=== PATIENT | female | born 1955 | race Caucasian/White ===

== ENCOUNTER 2024-07-15 21:52 | Observation (INO) | payer OTHER, SELFPAY ==
[2024-07-15 17:29] LABS: % Basophils 0.5 % (0-2); % Eosinophils 1.3 % (0-6); % Immature Granulocytes 0.5 % (0-0.5); % Lymphocytes 11.4 % (20.5-51.1); % Monocytes 4.8 % (1.7-9.3); % Neutrophils 81.5 % (42.2-75.2); Absolute Eosinophils 0.1 10^3/uL (0-0.7); Absolute Monocytes 0.4 10^3/uL (0.1-0.6); Absolute Neutrophils 7.1 10^3/uL (1.4-6.5); Hemoglobin 15.2 g/dL (12.0-16.0); Mean Corp Hgb Conc. 32.3 g/dL (33.0-37.0); Mean Corpuscular Hgb 30.3 pg (27.0-31.0); Mean Corpuscular Volume 93.6 fL (81.0-99.0); Mean Platelet Volume 10.1 fL (7.4-10.4); Nucleated Red Blood Cells % 0 %; Platelet Count 182 10^3/uL (130-400); Red Blood Cell Count 5.02 10^6/uL (4.20-5.40); White Blood Cell Count 8.7 10^3/uL (4.8-10.8)
[2024-07-15 17:50] LABS: ALT (SGPT) 14 U/L (0-35); AST (SGOT) 18 U/L (14-36); Albumin 4.1 g/dl (3.5-5.0); Alkaline Phosphatase 114 U/L (38-126); Blood Urea Nitrogen 16 mg/dl (7-17); Calcium 9.4 mg/dl (8.4-10.2); Carbon Dioxide 23 mmol/L (22-30); Chloride 106 mmol/L (98-107); Glucose 135 mg/dl (70-99); Potassium 3.9 mmol/L (3.5-5.1); Sodium 138 mmol/L (135-145); Total Bilirubin 0.7 mg/dl (0.2-1.3); Total Protein 6.9 g/dl (6.3-8.2)
[2024-07-15 17:55] LABS: Troponin I < 0.012 ng/ml
[2024-07-15 18:20] LABS: Lipase 47 U/L (23-300)
[2024-07-15 19:04] VITALS: BP 143/65
[2024-07-15 19:27] VITALS: BMI 46.4
--- NOTE | 2024-07-15 19:41 | ED.GENMED ---
History of Present Illness
General
Chief Complaint: Abdominal Pain
Source: patient
Exam Limitations: none
Time Seen by Provider: 07/15/24 19:32
Nursing documentation reviewed up to this point in time: agreed with
History of Present Illness
History of Present Illness:
Patient without significant past medical history, presents to ED secondary to sudden onset of upper abdominal pain associated with vomiting episodes, starting this morning. Patient does have history of gallstones, found incidentally during
evaluation 5 years ago. Denies fever or chills. Denies recent illness. Denies trauma. Denies difficulty with urination. Abdominal pain described as sharp, nonradiating, without any alleviating or exacerbating factors.
Past History
Past History
ED Past Surgical History: Gynecological, Orthopedic and Other (Gastric bypass)
Review of Systems
Review of Systems
Allergies reviewed?: Yes
All Other Systems: ROS reviewed and negative except as documented in HPI and ROS
Constitutional: Reports no symptoms; Denies fever
Respiratory: Reports no symptoms
Cardiac: Reports no symptoms
ABD/GI: Reports abdominal pain, nausea and vomiting
Musculoskeletal: Reports no symptoms
Skin: Reports no symptoms
Neurological: Reports no symptoms
Phy Exam
Physical Exam
Physical Exam:
Physical Exam
General: moderate painful distress, not acutely ill. afebrile
Head: nc/at. eomi
Neck: supple. normal range of motion.
Abdomen: normal bowel sounds. no distention. moderate RUQ tenderness to palpation
Neuro: alert and oriented x 3. no focal neurological deficits
Skin: no rash
Psychiatric: well kept. interactive and cooperative
Extremities: no edema. no calf tenderness.
Course
Orders/Labs/Results
Orders:
Orders
07/15/24 16:53
Electrocardiogram (*1) Urgent
Reason for Study: Vertigo / Dizzy
EKG- Treatment ONCE
07/15/24 17:04
US Abdomen Complete/Upper Urgent
Comment:
Reason For Exam: RUQ pain
07/15/24 17:21
Complete Blood Count/With Diff Urgent
Comprehensive Metabolic Panel Urgent
Lipase Urgent
Comment: ADD ON
Troponin I Urgent
07/15/24 18:04
Add On- LAB Urgent
Tests Added?: Lipase
07/15/24 19:38
HYDROmorphone [Dilaudid] 0.5 mg IV NOW STA
07/15/24 19:39
0.9% Sodium Chloride 500 ml [Nss] 500 ml IV BOLUS
Ondansetron Injectable [Zofran] 4 mg IV NOW STA
07/15/24 19:45
Piperacillin/Tazo 3.375 Gram [Zosyn] 3.375 gram in 50 ml IV NOW
07/15/24 20:18
HYDROmorphone [Dilaudid] 0.5 mg IV NOW STA
07/15/24 21:24
Admit/Transfer Patient As Directed
Co-Sign Provider:
Level of Care: Observation services
Assign to:: Telemetry
Physician / Group: Surgery
Diagnosis: Acute Choleycystitis
Reason for Telemetry: Arrhythmia
Date to Stop Telemetry: 07/18/24
Time to Stop Telemetry: 11:00
07/15/24 21:25
PRN Pain Medication Management As Directed
May give lesser potent ordered pain med per pt: Yes
preference::
Protocol:: Medication orders for pain may be administered in a
manner that supports deferring to patient preference
when the pt is:
- Requesting an ordered lesser potent pain medication.
Least to most potent pain medications are defined
as: acetaminophen < NSAID < tramadol < opioids
(morphine, oxycodone, hydromorphone).
- Requesting a lesser dose of the same medication IF
ORDERED.
- Requesting a less intrusive route of administration
if both routes are prescribed by the provider (PO <
IV).
07/15/24 21:30
Code Status As Directed
Resuscitation Status: Full Code
07/15/24 22:00
Flush (0.9% Sodium Chloride) [Flush (Nss)] See Dose Instructions IV PER PROTOCOL
07/16/24 02:00
Piperacillin/Tazo 3.375 Gram [Zosyn] 3.375 gram in 50 ml IV Q6H
07/18/24 11:00
DC Protocol for Telemetry ONCE
Abnormal Lab Results
07/15/24
17:21
MCHC 32.3 L g/dL
(33.0-37.0)
Absolute Neuts (auto) 7.1 H 10^3/uL
(1.4-6.5)
Absolute Lymphs (auto) 1.0 L 10^3/uL
(1.2-3.4)
Neutrophils % 81.5 H %
(42.2-75.2)
Lymphocytes % 11.4 L %
(20.5-51.1)
Creatinine 1.2 H mg/dL
(0.6-1.0)
Glucose 135 H mg/dl
(70-99)
07/15/24 17:21
07/15/24 17:21
Vital Signs
Initial and Last Documented VS:
Initial Vital Signs
Temp Pulse Resp Pulse Ox
98.1 F 60 22 99
07/15/24 16:57 07/15/24 16:57 07/15/24 16:57 07/15/24 16:57
Last Documented Vital Signs
Temp Pulse Resp BP Pulse Ox
98.1 F 63 14 166/90 98
07/15/24 16:57 07/15/24 23:49 07/15/24 23:49 07/15/24 23:00 07/15/24 23:30
MDM/Problems Addressed
MDM/Problems Addressed:
History, exam, and abdominal ultrasound consistent with acute cholecystitis.
Discussed with on-call surgeon, Dr. Kim. Will admit patient for likely OR tomorrow. Requests Zosyn in ED.
*Critical Care Note
Total Time (30-74mins, 75-104mins- exclusive of procedures): Not Applicable
ED Attending Note
-
Portions of this chart may have been created with voice recognition software.� Occasional wrong word or��sound alike� substitutions may have occurred due to the inherent limitations of voice recognition software.
Discharge Plan
Departure
Patient Disposition: Admit
Date of Disposition: 07/15/24
Time of Disposition: 19:45
Presentation/result/management discussed w/ accepting MD/DO:
Discharge Problem:
Acute cholecystitis
Interventions
Interventions:
*Risk Screen - Suicide Last Done: 07/15/24 16:57
*General Assessment Last Done: 07/15/24 16:57
*Neglect/Abuse Screening Last Done: 07/15/24 16:57
ED- Fall Risk Assessment Last Done: 07/15/24 19:27
*ED COVID-19 Vaccine History Last Done: 07/15/24 19:27
SX-Whbvfg-Kqyynlplof Assessment Last Done: 07/15/24 19:27
ED- Cardiac Assessment Last Done: 07/15/24 19:27
ED- Neurological Assessment Last Done: 07/15/24 19:27
ED Swallowing Screen Last Done: 07/15/24 20:07
[2024-07-15] MEDS: ZOFRAN 4 MG IV (19:44)
[2024-07-15] MEDS: DILAUDID 0.5 MG IV ×3 (19:44→22:24)
[2024-07-15] MEDS: NSS 500 IV (19:47)
[2024-07-15 20:00] VITALS: BP 140/61
[2024-07-15] MEDS: ZOSYN 50 IV (20:01)
--- NOTE | 2024-07-15 20:09 | HPS.HSE ---
Addendum entered and electronically signed by Craig Kim MD 07/16/24 07:59:
I saw and examined the patient independently.
The Chemical Preparer's note was reviewed and I agree with the note, assessment and plan except where noted below.
Comment: This is a 69-year-old female with morbid obesity (BMI 44) status post open gastric bypass, hysterectomy who presents with a 1 day history of right upper quadrant pain. Found to have acute cholecystitis on ultrasound imaging. Vital stable.
Blood work unremarkable. Tender to palpation in the right upper quadrant with positive sonographic Morris sign.
Will plan for a laparoscopic, possible open cholecystectomy with cholangiogram.
N.p.o., IV fluids, IV Zosyn
Risks/Benefits/Alternatives, expected postoperative course and possible complications (bleeding, infection, injury to surrounding structures, acute/chronic pain) discussed at length. Patient wishes to proceed with surgery. All questions answered.
Consent obtained.
I spent 75 minutes in total for the care of this patient today including direct patient care and counseling, reviewing labs, imaging, coordination of care, as well as documentation.
Original Note:
Family Physician
-
Family Physician: Merle Rogers MD
Chief Complaint
-
Abdominal pain
History of Present Illness
Patient is a 69 year old female with no significant past medical history, presents to the emergency department for sudden onset of upper abdominal pain with vomiting that started around 9 am this morning. Abdominal pain described as sharp,
nonradiating, without any alleviating or exacerbating factors. Patient has a history of gallstones, found incidentally during examination 5 years ago. Denies fever or chills. Denies recent illness. Denies trauma. Denies difficulty with
urination.
In the emergency department, vital signs stable, afebrile. EKG showed NSR, HR 60. Labs showed no leukocytosis, WBC 8.7. Creatinine elevated at 1.2.
Abdominal U/S showed sonographic findings consistent with acute cholecystitis. No bile duct dilatation. Findings suggest medical renal disease. Left renal 6 mm nonobstructing calculus.Fatty infiltration of liver. Results sent by [place] text to
[facility] at 7:30 PM on 07/15/2024.
Case discussed with on-call surgeon, Dr. Kim, who will accept patient for admission. Plan for possible OR tomorrow.
Medical History
Past Medical History
Past Medical History: Reports Arrhythmia (benign PAC's), Renal Failure (Stage 3a CKD), Psychiatric (Anxiety, psychophysiological insomnia, PTSD) and Other (b/l subacute pulmonary emboli, 09/2019 (Post COVID 08/2019), )
Past Surgical History: Reports Gynocological (Hysterectomy, 1997), Orthopedic (Right total hip replacement, 01/18/2023) and Urological ( )
Social History
Tobacco: Non-smoker
Alcohol: Occasional
Drug: None
Personal:
Living: With Family
Employment: Retired
Family History
Family History: Not pertinent
Allergies / Home Medications
Allergies reflects when Allergies were last updated in [employer].
Home Medications with original date entered in [employer]
Allergy/Medication List:
Patient Allergies
Allergy/AdvReac Type Severity Reaction Status Date / Time
No Known Allergies Allergy Verified 07/15/24 17:01
Home Medications
�Medication �Instructions �Recorded
cyclosporine 0.05 % eye drops in a 1 drp BOTH EYES Q12H 07/15/24
dropperette (Restasis)
duloxetine 60 mg capsule,delayed 120 mg PO HS 07/15/24
release
gabapentin 400 mg capsule 800 mg PO HS 07/15/24
quetiapine 25 mg tablet (Seroquel) 25 mg PO HS 07/15/24
trazodone 100 mg tablet 200 mg PO HS 07/15/24
Review of Systems
-
History Source: Patient
A 12 point ROS was completed and negative except as noted: Yes
Constitutional: Reports See HPI
EENT: Reports No Symptoms
Respiratory: Reports No Symptoms
Cardiac: Reports No Symptoms
Abdomen/GI: Reports Abdominal Pain (upper abdominal pain), Nausea and Vomiting
: Reports No Symptoms
Musculoskeletal: Reports No Symptoms
Skin: Reports No Symptoms
Neurological: Reports Dizzy
Endocrine: Reports No Symptoms
Psych: Reports Anxiety
Physical Exam
Vital Signs
Vital Signs
Temp Pulse Resp BP Pulse Ox
98.1 F 62 15 140/61 98
07/15/24 16:57 07/15/24 20:00 07/15/24 20:00 07/15/24 20:00 07/15/24 20:00
Physical Exam
General: Appears in Distress, Pain and Poor Appetite
HEENT: NormoCephalic and Moist mucous membranes
Respiratory: Clear
Cardiac: S1/S2 and Regular Rhythm
GI: Non Distended and Tender (right upper quadrant)
Skin: Warm and Dry
Neuro: AO x 3
Psych: Intact Judgment/Insight and Anxious
Laboratory Results
-
07/15/24 17:21
07/15/24 17:21
Laboratory Results
Total Bilirubin 0.7 mg/dl (0.2-1.3) 07/15/24 17:21
AST 18 U/L (14-36) 07/15/24 17:21
ALT 14 U/L (0-35) 07/15/24 17:21
Alkaline Phosphatase 114 U/L (38-126) 07/15/24 17:21
Troponin I < 0.012 ng/ml 07/15/24 17:21
Lipase 47 U/L (23-300) 07/15/24 17:21
Data Reviewed
-
Ultrasound: Report Reviewed by me
Lab Data: Labs Reviewed by me
Impression/Plan
-
IMPRESSION:
Patient is a 69 year old female with past medical history benign PAC's, JAY, hx of pulmonary emboli post COVID in 09/2019 (completed treatment w/Eliquis for 1 yr), stage 3a CKD, Hx of gastric bypass, anxiety, PTSD, presents to the emergency
department for sudden onset of upper abdominal pain with vomiting that started around 9 am this morning. Abdominal U/S showed acute cholecystitis.
PLAN:
Acute cholecystitis
-Admitted to general surgery, Dr. Craig Kim accepted patient
-NPO, IV fluids ordered
-Possible OR tomorrow
-Antibiotics continued, Zosyn 3.375 IV Q6H
-Ordered pain medication and antiemetics
Insomnia/Anxiety
-Home medications to be continued per surgery
DVT Prophylaxis: SCD's/Lovenox post op
Code status: Full code
[2024-07-15 21:00] VITALS: BP 126/70
[2024-07-15] MEDS: FLUSH (NSS) 1 FLUSH IV (21:53)
[2024-07-15 22:20] VITALS: BP 156/74
[2024-07-15 23:00] VITALS: BP 166/90
[2024-07-16] VITALS (18 sets, daily range): BP systolic 10–156; BP diastolic 51–121; BMI 44.7
[2024-07-16] MEDS: DILAUDID 1 MG IV ×2 (01:54→05:28)
[2024-07-16] MEDS: ZOFRAN 4 MG IV (02:00)
[2024-07-16] MEDS: NSS 1000 IV ×2 (02:05→15:00)
[2024-07-16] MEDS: ZOSYN 50 IV ×3 (02:05→19:50)
[2024-07-16] MEDS: DILAUDID 0.5 MG IV ×3 (03:29→23:36)
[2024-07-16 06:57] LABS: Hematocrit 44.3 % (37.0-47.0); Hemoglobin 14.8 g/dL (12.0-16.0); Mean Corp Hgb Conc. 33.4 g/dL (33.0-37.0); Mean Corpuscular Hgb 29.8 pg (27.0-31.0); Mean Corpuscular Volume 89.3 fL (81.0-99.0); Mean Platelet Volume 9.9 fL (7.4-10.4); Platelet Count 171 10^3/uL (130-400); Red Blood Cell Count 4.96 10^6/uL (4.20-5.40); Red Cell Dist. Width 13.9 % (11.5-14.5); White Blood Cell Count 9.8 10^3/uL (4.8-10.8)
[2024-07-16 07:42] LABS: Blood Urea Nitrogen 13 mg/dl (7-17); Calcium 8.7 mg/dl (8.4-10.2); Carbon Dioxide 19 mmol/L (22-30); Chloride 106 mmol/L (98-107); Estimated Creatinine Clearance 57 ml/min; Glucose 129 mg/dl (70-99); Potassium 4.5 mmol/L (3.5-5.1); Sodium 137 mmol/L (135-145); eGFR 54.39
--- NOTE | 2024-07-16 07:44 | PTCARENOTE ---
Report received from manager night at 715 OR called at 730 for patient . Pre op work chest list completed . temp > 101 Report given to PACU Nurse. Pt sent to OR. PT going to 2 S after and all belongings packed and sent with her
--- NOTE | 2024-07-16 07:59 | W.SUR.PREOP ---
Pre-Operative Surgical Note
-
I have examined this patient prior to the performance of the scheduled procedure.
The patient's condition is unchanged from the time of the current History and
Physical and the patient is able to undergo the scheduled procedure.
[2024-07-16] MEDS: ZOSYN IV (09:02)
--- NOTE | 2024-07-16 11:28 | W.IMMPOSTOP ---
Surgical Immed Post Op Note
-
Primary Surgeon: Craig Kim MD
Assisting Surgeon: Xander Caldwell MD (PGY 1)
Pre-op Diagnosis: Acute cholecystitis
Post-op Diagnosis: Acute cholecystitis, intra-abdominal adhesions
Procedure Performed:
1. Laparoscopic lysis of adhesions (100 minutes)
2. Laparoscopic cholecystectomy with cholangiogram
Anesthesia Type: General
Specimen / Cultures: Gallbladder and contents
Estimated Blood Loss: 101 cc
Complications: None
Operative Findings: Left subcostal Veress entry requiring a single pass followed by a chest of midline right upper quadrant Optiview trocar entry. No injury on entry noted. We encountered dense adhesions across her right subcostal margin as
expected. 2 more additional 5 mm trocars were placed in the right lower quadrant and left upper quadrant. We performed a laparoscopic lysis of adhesions taking down the transverse colon and omentum from the right lateral sidewall all the way to
the midline and falciform. There were also dense adhesions over the gallbladder and the duodenum to the base of the gallbladder that were all lysed with electrocautery and sharp dissection respectively. This took roughly 100 minutes. The
gallbladder was notably distended and gangrenous. A top-down cholecystectomy was performed without violation of the gallbladder. We were able to get to the infundibulum but dense adhesions prevented us from going any further. The gallbladder was
divided at this level and opened. The gallbladder was placed in a specimen bag and removed. There were 4 additional black gallstones identified in the cystic duct which were removed. There was free backflow of bile. We did attempt cholangiogram
but were unable to significantly cannulate the duct enough to get a good image without leaking. A small cuff of the stump was dissected and ligated with a 0 PDS Endoloop. A 19 Slovenian round Tad drain was introduced through the right lateralmost
port and secured to the skin with a 2-0 nylon suture and laid across our surgical field. The field was also infiltrated with Surgiflo to assist with any hemostasis though there was no active bleeding at the end of the procedure. The 12 mm
epigastric port was closed with 0 PDS suture using a Burt Echevarria device and the remaining 5 mm ports were pulled under direct visualization.
POST OP PLAN:
Imaging: None
Labs: Will check CBC and CMP
Diet: Clears
Analgesia: Tylenol 650mg q6 Alexandr, Bria 5mg q6 PRN, Dilaudid 0.5mg q2h PRN
Neuro/vascular checks: q4h
AC/AP: Hold Therapeutic AC, DVT PPx
Activity: Ad Jigna
Wound/Incisions/Drains: ASHUTOSH to bulb suction
Abx: Will continue antibiotics x 4 days
Dispo: RNF
--- NOTE | 2024-07-16 13:04 | PTCARENOTE ---
pt received to 2S room 2117 via bed from PACU at 1250. pt oriented to room, call joy and post op plan of care. pt drowsy but easily arousable. at bedside. telemetry placed and reading SR in 80's. tolerating ice chips. denies pain or
nausea. care ongoing.
--- NOTE | 2024-07-16 15:27 | OR.RPT ---
Operative Report
Operative Report
Patient Name: Bhavani Deal
: 1955
Date of Operation: 07/16/2024
Preoperative Diagnosis: Acute cholecystitis
Postoperative Diagnosis: Acute cholecystitis, intra-abdominal adhesions
Procedure(s):
1. Laparoscopic lysis of adhesions (100 minutes)
2. Laparoscopic Cholecystectomy with Cholangiogram
Surgeon(s):
Dr. Kim
[place] Winder(s):
Xander Caldwell MD (PGY 1)
Anesthesia: General
Estimated Blood Loss: 101 cc
Urine Output: 500 cc at the end of the case
Drains/Lines/Implants: 19 Montenegrin round Tad drain in the gallbladder fossa. 18 Montenegrin Kumar placed in the case.
Specimens:
1. Gallbladder and contents
HPI/Surgical Indications:
This is a 69-year-old female with a history of an open Pari-en-Y gastric bypass who presents with a 1 day history of abdominal pain, but known postprandial pain for some time. She is known about gallstones for at least 5 years. Exam, labs and
imaging are consistent with acute cholecystitis. Risks/Benefits/Alternatives were discussed at length, and the patient agreed to proceed with surgery.
Operative Findings: Left subcostal Veress entry requiring a single pass followed by a chest of midline right upper quadrant Optiview trocar entry. No injury on entry noted. We encountered dense adhesions across her right subcostal margin as
expected. 2 more additional 5 mm trocars were placed in the right lower quadrant and left upper quadrant. We performed a laparoscopic lysis of adhesions taking down the transverse colon and omentum from the right lateral sidewall all the way to
the midline and falciform. There were also dense adhesions over the gallbladder and the duodenum to the base of the gallbladder that were all lysed with electrocautery and sharp dissection respectively. This took roughly 100 minutes. The
gallbladder was notably distended and gangrenous. A top-down cholecystectomy was performed without violation of the gallbladder. We were able to get to the infundibulum but dense adhesions prevented us from going any further. The gallbladder was
divided at this level and opened. The gallbladder was placed in a specimen bag and removed. There were 4 additional black gallstones identified in the cystic duct which were removed. There was free backflow of bile. We did attempt cholangiogram
but were unable to significantly cannulate the duct enough to get a good image without leaking. A small cuff of the stump was dissected and ligated with a 0 PDS Endoloop. A 19 Montenegrin round Tad drain was introduced through the right lateralmost
port and secured to the skin with a 2-0 nylon suture and laid across our surgical field. The field was also infiltrated with Surgiflo to assist with any hemostasis though there was no active bleeding at the end of the procedure. The 12 mm
epigastric port was closed with 0 PDS suture using a Burt Echevarria device and the remaining 5 mm ports were pulled under direct visualization.
Procedure Description:
The patient was brought to the Operating Room and placed in the supine position with the arms out. Following uneventful induction of general endotracheal anesthesia, the abdomen was prepped and draped in the usual sterile fashion. A timeout was
performed confirming the procedure, consent, and that IV antibiotics were infused and sequential compression devices were confirmed to be on. The abdomen was entered using a left subcostal Veress technique which required a single pass followed by a
5 mm right upper quadrant Optiview trocar. Pneumoperitoneum to 15 mmHg pressure was obtained without difficulty and we confirmed that no injury had occurred during our entry. We immediately encountered dense adhesions from the transverse colon
omentum up to the anterior abdominal wall spanning the length of her subcostal incision as expected. Two 5 mm ports were placed in the right and left quadrants and we began a tedious lysis of adhesions. This took roughly 100 minutes but we were
able to completely dissect the transverse colon down without any injury to the underlying viscera. The gallbladder was identified and noted to be gangrenous and very distended. 2 more 5 mm ports were placed in the right upper quadrant in the
standard position as well as a 12 mm port in the epigastrium. The patient was positioned in reverse Trendelenberg and rotated with the right side up slightly. The gallbladder was emptied using a decompressing needle through the fundus of the
gallbladder with evacuation of hydrops before A locking grasping forceps was placed on the fundus of the gallbladder where it was then retracted cephalad and to the right. Using appropriate grasping instruments, the peritoneum overlying the triangle
of Calot was incised and extended superiorly on both the anterior and posterior gallbladder mahajan. We encountered bleeding which we controlled with our laparoscopic bipolar energy device. As the tissues here were quite friable we elected to do a
top-down cholecystectomy which we were able to do without violating the gallbladder fossa. Once we got to the infundibulum progress was limited due to the inflammation medially and inferiorly as duodenum was somewhat adherent in this area. At this
point I elected to transect the gallbladder at the level of the cystic duct junction to the infundibulum. The gallbladder was then placed in an Endo Catch bag and removed. At this point all bleeding had stopped and we were able to better visualize
the cystic duct stump. Four additional black gallstones were removed, the latter 2 had to be milked out of the duct. This was followed by fairly free backflow of bile. Despite having normal preoperative LFTs, given her bypass anatomy we attempted
cholangiogram and passed cholangiocatheter into the duct and clamped it to the edge of the stump with Mclean clamp. Unfortunately we were not able to thread the catheter very far and there was significant spilling on x-ray so the cholangiogram was
aborted. I was able to get a little bit more length on the cystic duct stump and using a 0 PDS Endoloop ligated. There was no bleeding at this point however to ensure hemostasis the surgical field was sprayed with Floseal and then a 19 Montenegrin
round Tad drain was introduced to the right lateralmost port and secured at the skin with a 2-0 nylon stitch. There was some spillage of bile during this case but all extracted stones were removed. The gallbladder bed was inspected and excellent
hemostasis was obtained. The abdomen was again irrigated and excellent hemostasis was assured. All remaining trocars were then removed and the pneumoperitoneum was evacuated. The 12 mm trocar site was closed using 0 PDS suture. All trocar sites
were closed at the skin level using 4-0 Monocryl followed by Dermabond. Overall, the patient tolerated the procedure well and was taken to the Recovery Room postoperatively in stable condition.
I was the attending physician and performed the procedure with assistance from the resident above. I was present for all portions of the case, excluding skin closure.
Craig Kim MD
--- NOTE | 2024-07-16 17:29 | PTCARENOTE ---
pt requesting to get out of bed. much more awake and alert. assisted to reclining chair. pt immediately asking to have Kumar catheter removed. catheter removed at 1725. 300 ml yellow urine emptied from drainage bag. pt belching, drinking
water and ordered a clear liquid tray. care ongoing.
[2024-07-16] MEDS: LOVENOX 40 MG SC (19:50)
[2024-07-16] MEDS: TYLENOL 650 MG PO (19:51)
[2024-07-17] MEDS: ZOSYN 50 IV (02:52)
[2024-07-17 02:58] VITALS: BP 115/60
[2024-07-17] MEDS: NSS 1000 IV (03:33)
[2024-07-17] MEDS: DILAUDID 1 MG IV ×2 (03:33→05:53)
[2024-07-17 07:16] VITALS: BP 104/51
--- NOTE | 2024-07-17 08:10 | W.PN.GS2 ---
Addendum entered and electronically signed by Craig Kim MD 07/17/24 13:17:
MRCP negative. Will discharge the patient home today with drain with plan for close follow-up in the office.
Original Note:
Today's Communication / Plan
-
Will advance to regular diet
Stop IV fluids, antibiotics
Mildly elevated serum creatinine we will hold NSAIDs. Tylenol, tramadol and Dilaudid as needed.
Will obtain an MRI/MRCP to ensure no residual stone disease in the biliary ducts.
Assessment / Plan
-
This is a 69-year-old female with a history of an open Pari-en-Y gastric bypass who presents with a 1 day history of right upper quadrant abdominal pain found to have acute cholecystitis. Postoperative day 1 from a laparoscopic lysis of adhesions,
cholecystectomy with incomplete cholangiogram. Doing well, expected postoperative course.
Will advance to regular diet
Stop IV fluids, antibiotics
Mildly elevated serum creatinine we will hold NSAIDs. Tylenol, tramadol and Dilaudid as needed.
Will obtain an MRI/MRCP to ensure no residual stone disease in the biliary ducts.
Anticipate discharge home later today with the drain versus tomorrow pending clinical course.
Time Spent
Total Time Spent with Patient (in minutes): 20
Subjective Data
-
Date of Service: July 17, 2024
Interval Events:
No acute events overnight. Slept well. Pain Controlled. Denies Nausea/Vomiting, -bowel function. Tolerating diet.
Objective Data
-
Intake and Output
07/16/24 07/17/24 07/18/24
06:59 06:59 06:59
Intake Total 1590 / 1590
Output Total 1400 / 1400
Balance 190 / 190
Intake:
Oral fluids 540 / 540
IV fluids (Total) 900 / 900
normosol 75 / 75
IV piggybacks 150 / 150
Output:
Drain Output (Total) 75 / 75
Right Abdomen 75 / 75
Urine, Wood 1125 / 1125
Urine, Voided 200 / 200
Other:
Number of approximated SMALL 1
amounts of urine
How many times incontinent 1
SMALL amount urine
Vital Signs
Temp Pulse Resp BP Pulse Ox
97.5 F 79 16 104/51 91
07/17/24 07:16 07/17/24 07:16 07/17/24 07:16 07/17/24 07:16 07/17/24 07:16
Calcium 8.7 mg/dl (8.4-10.2) 07/16/24 06:44
Total Bilirubin 0.7 mg/dl (0.2-1.3) 07/15/24 17:21
AST 18 U/L (14-36) 07/15/24 17:21
ALT 14 U/L (0-35) 07/15/24 17:21
Alkaline Phosphatase 114 U/L (38-126) 07/15/24 17:21
Total Protein 6.9 g/dl (6.3-8.2) 07/15/24 17:21
Albumin 4.1 g/dl (3.5-5.0) 07/15/24 17:21
Physical Exam
-
GENERAL/NEURO: Awake, Alert, no distress
CHEST: Unlabored breathing on RA
ABDOMEN: Soft, Non-Tender, Non-Distended, ASHUTOSH serosanguineous. Incisions clean dry and intact.
Patient has a wood catheter: No
Patient has a central line: No
[2024-07-17] MEDS: ZOSYN IV (08:16)
[2024-07-17] MEDS: LOVENOX 40 MG SC (08:18)
[2024-07-17 09:34] LABS: % Basophils 0.3 % (0-2); % Eosinophils 0.2 % (0-6); % Immature Granulocytes 0.6 % (0-0.5); % Lymphocytes 8.9 % (20.5-51.1); % Monocytes 5.2 % (1.7-9.3); % Neutrophils 84.8 % (42.2-75.2); Absolute Immature Granulocytes 0.1 10^3/uL (0-0.05); Absolute Lymphocytes 0.9 10^3/uL (1.2-3.4); Absolute Monocytes 0.5 10^3/uL (0.1-0.6); Absolute Neutrophils 8.7 10^3/uL (1.4-6.5); Hematocrit 39.3 % (37.0-47.0); Hemoglobin 12.8 g/dL (12.0-16.0); Mean Corp Hgb Conc. 32.6 g/dL (33.0-37.0); Mean Corpuscular Hgb 30.2 pg (27.0-31.0); Mean Corpuscular Volume 92.7 fL (81.0-99.0); Mean Platelet Volume 10.3 fL (7.4-10.4); Nucleated Red Blood Cells % 0 %; Platelet Count 167 10^3/uL (130-400); Red Blood Cell Count 4.24 10^6/uL (4.20-5.40); Red Cell Dist. Width 14.1 % (11.5-14.5); White Blood Cell Count 10.2 10^3/uL (4.8-10.8)
[2024-07-17 10:16] LABS: ALT (SGPT) 31 U/L (0-35); AST (SGOT) 30 U/L (14-36); Alkaline Phosphatase 93 U/L (38-126); Blood Urea Nitrogen 14 mg/dl (7-17); Calcium 8.2 mg/dl (8.4-10.2); Carbon Dioxide 26 mmol/L (22-30); Chloride 104 mmol/L (98-107); Estimated Creatinine Clearance 62 ml/min; Glucose 104 mg/dl (70-99); Potassium 4.2 mmol/L (3.5-5.1); Sodium 136 mmol/L (135-145); Total Bilirubin 0.9 mg/dl (0.2-1.3); Total Protein 5.6 g/dl (6.3-8.2); eGFR > 60.00
[2024-07-17] MEDS: ULTRAM 25 MG PO (10:22)
[2024-07-17 11:07] VITALS: BP 147/75
--- NOTE | 2024-07-17 11:24 | CM ---
Reviewed the chart notes and spoke with the patient at the bedside. Patient is s/p lap esau. The patient resides with her spouse in a two story home with two steps to enter. The patient reports on DME is a CPAP machine. The patient has had VN
in past, but no SNF. The patient confirmed her pharmacy of choice is the [facility] and PCP is [facility] [employer] TECHNICIAN Brielle Lee. CM continues to be available to patient/family and is monitoring medical plan for needs at discharge.
Plan: Discharge to home when medically stable. No needs anticipated at this time.
[2024-07-17] MEDS: TYLENOL 650 MG PO (13:12)
== END 2024-07-17 13:59 | disposition home or self-care (01) ==
LOC: 2 SOUTH 21:52
PROVIDERS: Nurse Practitioner Family; ADMITTING PHYSICIAN Surgery; EMERGENCY PHYSICIAN Emergency Medicine; FAMILY PHYSICIAN Emergency Medicine
DX: K80.00 Calculus of gallbladder with acute cholecystitis without obstruction (principal); R10.10 Upper abdominal pain, unspecified; R11.10 Vomiting, unspecified; R42 Dizziness and giddiness; E66.01 Morbid (severe) obesity due to excess calories; R79.89 Other specified abnormal findings of blood chemistry; K76.0 Fatty (change of) liver, not elsewhere classified; N18.31 Chronic kidney disease, stage 3a; F41.9 Anxiety disorder, unspecified; G47.00 Insomnia, unspecified; F43.10 Post-traumatic stress disorder, unspecified; K66.0 Peritoneal adhesions (postprocedural) (postinfection); N20.0 Calculus of kidney; J98.11 Atelectasis; J90 Pleural effusion, not elsewhere classified; K44.9 Diaphragmatic hernia without obstruction or gangrene; G47.33 Obstructive sleep apnea (adult) (pediatric); Z98.84 Bariatric surgery status; Z68.41 Body mass index [BMI] 40.0-44.9, adult; Z86.16 Personal history of COVID-19; Z90.710 Acquired absence of both cervix and uterus; Z96.641 Presence of right artificial hip joint; Z86.711 Personal history of pulmonary embolism
CPT/HCPCS: 47563; 44180; 88304; 74181; 74300; 76000; 76700; 80048; 80053; 83690; 84484; 85025; 85027; 87070; 93005; 96361; 96365; 96375; 96376; 99285; A4300; C1776; G0378

== ENCOUNTER → 2024-08-04 14:15 | Outpatient (REF) | payer OTHER, SELFPAY | LOC: RAD 14:15 | PROVIDERS: ATTENDING PHYSICIAN Surgery | DX: Z90.49 Acquired absence of other specified parts of digestive tract (principal); L02.211 Cutaneous abscess of abdominal wall; R10.11 Right upper quadrant pain | CPT/HCPCS: 74177; Q9967 ==

== ENCOUNTER → 2024-08-29 17:02 | Outpatient (REF) | payer OTHER, SELFPAY | LOC: RAD 17:02 | PROVIDERS: ATTENDING PHYSICIAN Surgery; FAMILY PHYSICIAN Nurse Practitioner Family | DX: T81.49XA Infection following a procedure, other surgical site, initial encounter (principal) | CPT/HCPCS: 74160; Q9967 ==

== ENCOUNTER → 2024-10-03 10:10 | Outpatient (REF) | payer OTHER, SELFPAY | LOC: HWWDC 10:10 | PROVIDERS: ATTENDING PHYSICIAN Nurse Practitioner Family | DX: Z12.31 Encounter for screening mammogram for malignant neoplasm of breast (principal) | CPT/HCPCS: 77063; 77067 ==

== ENCOUNTER → 2025-02-07 09:41 | Outpatient (REF) | payer OTHER, SELFPAY | LOC: HWRAD 09:41 | PROVIDERS: ATTENDING PHYSICIAN Nurse Practitioner Family | DX: N95.1 Menopausal and female climacteric states (principal) | CPT/HCPCS: 77080 ==

== ENCOUNTER → 2025-05-25 10:15 | Outpatient (REF) | payer OTHER, SELFPAY | LOC: HWRAD 10:15 | PROVIDERS: ATTENDING PHYSICIAN Nurse Practitioner Family | DX: R07.89 Other chest pain (principal) | CPT/HCPCS: 71101 ==